=== PATIENT | male | born 1975 | race Caucasian/White ===

== ENCOUNTER 2020-02-22 12:40 | Inpatient (IN) | payer OTHER ==
--- NOTE | 2020-02-22 12:57 | BHS.RME ---
Substance Use & Tx History - Substance Use History Alcohol Substance amount: one pint whisky, Frequency of use: More than 3 times per week Substance route: Oral Date of Last Use: 02/19/20 Heroin Substance amount: 4-6 bags Frequency of use: Daily Substance route: Inhalation (ex: sniffing or snorting) Date of Last Use: 02/19/20 Xanax Substance amount: 1 mg x 3 tabs prescription Frequency of use: Daily Substance route: Oral Date of Last Use: 02/21/20 Synthetic Cannabinoid Substance amount: one or 2 blunts Frequency of use: Daily Substance route: Smoking Date of Last Use: 02/22/20 Physical/Psych/Mental Status - Behavior General Behavior: Increased activity (restlessness, agitation) Eye Contact: Normal - Cooperativeness Cooperativeness: Cooperative - Thinking Thought Processes: Tight Thought content: Future oriented - Physical Health Problems Is patient presently having any pain?: Yes (face, fell yesterday, back pain) Does patient presently have any injuries (include location): Yes (fell yesterday) Does patient currently have a fever: No CIWA Nausea/Vomitin-No Nausea/No Vomiting Muscle Tremors: 4-Moderate,w/Arms Extend Anxiety: 4-Mod. Anxious/Guarded Agitation: 3 Paroxysmal Sweats: No Perspiration Orientation: 1-Uncertain about Date Tacttile Disturbances: 0-None Auditory Disturbances: 0-None Visual Disturbances: 0-None Headache: 1-Very Mild CIWA-Ar Total Score: 13
[2020-02-22 13:49] VITALS: BMI 28.6
--- NOTE | 2020-02-22 14:13 | HP ---
"CIWA Score Nausea/Vomitin-No Nausea/No Vomiting Muscle Tremors: 4-Moderate,w/Arms Extend Anxiety: 4-Mod. Anxious/Guarded Agitation: 3 Paroxysmal Sweats: No Perspiration Orientation: 1-Uncertain about Date Tacttile Disturbances: 0-None Auditory Disturbances: 0-None Visual Disturbances: 0-None Headache: 1-Very Mild CIWA-Ar Total Score: 13 - Admission Criteria OASAS Guidelines: Admission for Medically Managed Detox: Requires at least one of the followin. CIWA greater than 12 2. Seizures within the past 24 hours 3. Delirium tremens within the past 24 hours 4. Hallucinations within the past 24 hours 5. Acute intervention needed for co occurring medical disorder 6. Acute intervention needed for co occurring psychiatric disorder 7. Severe withdrawal that cannot be handled at a lower level of care (continued vomiting, continued diarrhea, abnormal vital signs) requiring intravenous medication and/or fluids 8. Admitting History and Physical - Admission Chief Complaint: Mr. Hair is a 44 yo man who presents to [facility] requesting detox from alcohol. History of Present Illness: Mr. Hair is a 44 yo man who presents to [facility] requesting detox from alcohol. He is using multiple substances. He is on a methadone program. This is his first visit to [facility]. PMH: Hep C untreated PSH: Scrotum 4 mos ago, spleen surgery, right jaw fracture Psych: Bipolar, Schizophrenia, Panic, does not recall names of meds SOC: usp Legal: none Substance Use History Alcohol Substance amount: one pint whisky, Frequency of use: More than 3 times per week Substance route: Oral Date of Last Use: 02/19/20 Heroin Substance amount: 4-6 bags Frequency of use: Daily Substance route: Inhalation (ex: sniffing or snorting) Date of Last Use: 02/19/20 Xanax Substance amount: 1 mg x 3 tabs prescription Frequency of use: Daily Substance route: Oral Date of Last Use: 02/21/20 Synthetic Cannabinoid Substance amount: one or 2 blunts Frequency of use: Daily Substance route: Smoking Date of Last Use: 02/22/20 states he blacked out yesterday after heavy use Cannabis: 2 joints twice per week, last use ? 2 weeks ago, began use age 19 y [facility] escobar hair, 1975 Search Date: 02/22/2020 14:11:30 PM The Drug Utilization Report below displays all of the controlled substance prescriptions, if any, that your patient has filled in the last twelve months. The information displayed on this report is compiled from pharmacy submissions to the Department, and accurately reflects the information as submitted by the pharmacies. This report was requested by: Emma Diaz | Reference #: [id number] Others' Prescriptions Patient Name: Escobar Hair Date: 1975 Address: [address] [place] [address] Sex: Male Rx Written Rx Dispensed Drug Quantity Days Supply Prescriber Name 08/07/2019 08/08/2019 alprazolam 1 mg tablet 21 7 Mariely Diaz Date: 1975 Address: [address] [place] [address] Sex: Male Rx Written Rx Dispensed Drug Quantity Days Supply Prescriber Name 12/22/2019 12/25/2019 zolpidem tartrate 10 mg tablet 30 30 Moriah Terrell MD 12/22/2019 12/25/2019 alprazolam 1 mg tablet 90 30 Moriah Terrell MD Date: 1975 Address: [address] [place] [id number] Sex: Male Rx Written Rx Dispensed Drug Quantity Days Supply Prescriber Name 02/13/2020 02/15/2020 alprazolam 1 mg tablet 90 30 Giuliana Kathleen NP 01/17/2020 01/17/2020 zolpidem tartrate 10 mg tablet 30 30 Hamlet Vargas MD 01/17/2020 01/17/2020 alprazolam 1 mg tablet 90 30 Hamlet Vargas MD 11/20/2019 11/20/2019 zolpidem tartrate 10 mg tablet 30 30 Hamlet Vargas MD 11/20/2019 11/20/2019 alprazolam 1 mg tablet 90 30 Hamlet Vargas MD 08/14/2019 09/13/2019 zolpidem tartrate 10 mg tablet 30 30 Hamlet Vargas MD 08/14/2019 08/14/2019 clonazepam 1 mg tablet 90 30 Hamlet Vargas MD Lengthy discussion with pt., in [place] with RN and Mr. Kee Camargo about rx for alprazolam. Pt asking to continue alprazolam while here. Offered Librium detox and explained taper plan. He is in agreement with Librium taper. Have suggested he taper benzodiazepines as an outpatient, discuss with [employer] Frannie or Dr. Vargas. History Source: Patient Limitations to Obtaining History: No Limitations Admission ROS BHS - HPI Allergies/Adverse Reactions: Allergies Allergy/AdvReac Type Severity Reaction Status Date / Time No Known Allergies Allergy Verified 02/22/20 13:32 Exam Limitations: No Limitations - Ebola screening Have you traveled outside of the country in the last 21 days: No Have you been sick,other than usual withdrawal symptoms: No Do you have a fever: No - Review of Systems Constitutional: Changes in sleep (insomnia), Unintentional Wgt. Loss (lost 10 to 15 lbs over the past one month) EENT: reports: Hearing Loss (muffled hearing right ear for 8 mos) Respiratory: reports: No Symptoms reported Cardiac: reports: No Symptoms Reported GI: reports: No Symptoms Reported : reports: No Symptoms Reported Musculoskeletal: reports: Other (aches all over, fell yesterday) Integumentary: reports: Other (multiple abrasions right side of forehead, lateral right temporal, bilateral proximal interphalangeal joints, knees left >right) Neuro: reports: Headache Endocrine: reports: No Symptoms Reported Hematology: reports: No Symptoms Reported Psychiatric: reports: Anxious Patient History - Smoking Cessation Smoking history: Current every day smoker Have you smoked in the past 12 months: Yes Aproximately how many cigarettes per day: 10 Hx Chewing Tobacco Use: No Initiated information on smoking cessation: Yes 'Breaking Loose' booklet given: 02/22/20 Admission Physical Exam [facility] - Vital Signs Vital Signs: Vital Signs - 24 hr 02/22/20 13:46 Temperature 98 F Pulse Rate 77 Respiratory 20 Rate Blood Pressure 109/72 - Physical General Appearance: Yes: No Apparent Distress, Nourished, Appropriately Dressed, Anxious HEENTM: Yes: EOMI, Hearing grossly Normal, Normocephalic, Normal Voice Respiratory: Yes: Lungs Clear, No Respiratory Distress, No Accessory Muscle Use Neck: Yes: Within Normal Limits, Supple Breast: Yes: Breast Exam Deferred Cardiology: Yes: Regular Rhythm, Regular Rate Abdominal: Yes: Normal Bowel Sounds, Non Tender, Flat, Soft Genitourinary: Yes: Other (deferred) Back: Yes: Normal Inspection Musculoskeletal: Yes: Gait Steady Neurological: Yes: Alert, Normal Response Integumentary: Yes: Other (multiple superficial abrasions right side of forehead, right lateral upper brow, lateral orbit, bilateral proximal interphalangeal joints, knees) - Diagnostic (1) Alcohol dependence with withdrawal, uncomplicated Current Visit: Yes Status: Acute Comment: 1. Admit detox 2. Librium 3. Pt agrees he will not get alprazolam while here 4. Routine labs in am (2) Methadone maintenance therapy patient Current Visit: Yes Status: Acute Comment: 1. dose verified, will continue 50 mg daily (3) Hepatitis C Current Visit: No Status: Chronic (4) Cannabis dependence Current Visit: Yes Status: Acute Comment: 1. Substance use education (5) Bipolar 1 disorder Current Visit: Yes Status: Acute Comment: 1. Psychiatry consultation Cleared for Admission S - Detox or Rehab [facility] Level of Care: Medically Managed Detox Regimen/Protocol: Librium Breathalyzer - Breathalyzer Breathalyzer: 0 Urine Drug Screen - Test Device Lot number: [id number] Expiration date: 09/05/21 - Control Is test valid?: Yes - Results Drug screen NEGATIVE: No Urine drug screen results: THC-Marijuana, MTD-Methadone, BZO-Benzodiazepines Inpatient Rehab Admission - Rehab Decision to Admit Inpatient rehab admission?: No"
[2020-02-22] MEDS ORDERED: NICOTINE POLACRILEX 2 MG GUM BUC PRN (14:21)
[2020-02-22] MEDS ORDERED: BISMUTH SUBSALICYLATE 262 MG/15 ML BTL PO PRN (14:21)
[2020-02-22] MEDS ORDERED: IBUPROFEN 400 MG TABLET (FP) PO PRN (14:21)
[2020-02-22] MEDS ORDERED: MAGNESIUM HYDROX 2400MG/30ML ORAL SUSPENSION 30 ML CUP PO PRN (14:21)
[2020-02-22] MEDS ORDERED: MAG HYDROX/AL HYDROX/SIMETH 30 ML UNIT-DOSE CUP PO PRN (14:21)
[2020-02-22] MEDS ORDERED: ONDANSETRON *ODT* 4 MG TABLET SL PRN (14:21)
[2020-02-22] MEDS ORDERED: MENTHOL/PHENOL 1 EACH UD MM PRN (14:21)
[2020-02-22] MEDS ORDERED: chlordiazePOXIDE HCL 25 MG CAPSULE PO PRN (14:21)
[2020-02-22] MEDS ORDERED: ACETAMINOPHEN 325 MG TABLET (FP) PO PRN ×2 (14:21)
[2020-02-22] MEDS ORDERED: MAGNESIUM CITRATE 300 ML BOTTLE PO PRN (14:21)
[2020-02-22] MEDS ORDERED: METHADONE HCL 40 MG DISPERSABLE TABLET PO SCH (14:30)
[2020-02-22] MEDS ORDERED: METHADONE 40 MG, METHADONE 10 MG PO SCH (14:30)
[2020-02-22] MEDS ORDERED: METHADONE HCL 40 MG DISPERSABLE TABLET ONE (15:26)
[2020-02-22] MEDS ORDERED: METHADONE HCL 10 MG TABLET ONE (15:26)
--- NOTE | 2020-02-22 16:10 | EKG ---
Test Reason : Blood Pressure : / mmHG Vent. Rate : 066 BPM Atrial Rate : 066 BPM P-R Int : 166 ms QRS Dur : 086 ms QT Int : 414 ms P-R-T Axes : 043 072 062 degrees QTc Int : 434 ms NORMAL SINUS RHYTHM WITH SINUS ARRHYTHMIA NORMAL ECG NO PREVIOUS ECGS AVAILABLE Confirmed by SENG ALMONTE MD ([id number]) on 02/22/2020 4:10:40 PM Referred By: Confirmed By:SENG ALMONTE MD
[2020-02-22] MEDS ORDERED: hydrOXYzine PAMOATE 25 MG CAPSULE (FP) PO SCH (18:00)
[2020-02-22] MEDS: chlordiazePOXIDE HCL 25 MG CAPSULE PO SCH ×2 (18:29→23:55)
[2020-02-22] MEDS: MUPIROCIN 2% TOPICAL OINTMENT 22 GM TUBE TP SCH (23:54)
[2020-02-22] MEDS: THIAMINE HCL 100 MG TABLET (FP) PO SCH (23:54)
[2020-02-22] MEDS: MELATONIN 5 MG TABLETS PO SCH (23:54)
[2020-02-23] MEDS: chlordiazePOXIDE HCL 25 MG CAPSULE PO SCH ×4 (05:16→22:45)
[2020-02-23] MEDS ORDERED: METHADONE HCL 10 MG TABLET PO ONE (08:40)
[2020-02-23] MEDS ORDERED: METHADONE HCL 10 MG TABLET ONE (08:50)
[2020-02-23] MEDS ORDERED: METHADONE HCL 40 MG DISPERSABLE TABLET ONE (08:51)
[2020-02-23] MEDS ORDERED: METHADONE 40 MG, METHADONE 10 MG PO ONE (09:00)
--- NOTE | 2020-02-23 09:48 | CONSULT ---
[facility] Psychiatric Consult - Data Date of interview: 02/23/20 Admission source: Self-referred Identifying data: Mr Hair is a 44 years old single male, father of a 26 years old daughter, unemployed with no source of income, homeless seeking detox treatment for alcohol, opioid and synthetic cannabis Substance Abuse History: Reports history of alcohol, heroin and k2 use. Refer to addiction counselor's summary for further information Medical History: Significant for hepatitis C and multiple surgeries(scrotum, spleen, fracture right mandible). Patient is on methadone 50 mg/day from [facility]. Smokes 10 cigarettes daily Psychiatric History: This is patient's first admission to this facility. He reports that he was diagnosed with Bipolar Schizophrenia approximately 9 years a go. Reports multiple previous psychiatric hospitalizations at various institutions including [facility], [facility], [facility]. Reports receiving outpatient psychiatric treatment at [facility] and he is prescribed Xanax 1mg/tid and other medications. Denies previous suicidal attempt. At present, denies experiencing psychotic, manic symptoms, S/H ideations. However, he is kamar irritable, reports feeling very depressed and sleeping poorly Physical/Sexual Abuse/Trauma History: Not addressed due to patient's irritability Mental Status Exam - Mental Status Exam Alert and Oriented to: Time (Mar 24, 2020), Place, Person Cognitive Function: Fair Patient Appearance: Disheveled Mood: Depressed, Irritable Affect: Appropriate Speech Pattern: Clear Voice Loudness: Normal Thought Process: Intact, Goal Oriented Hallucinations: Denies Suicidal Ideation: Denies Homicidal Ideation: Denies Insight/Judgement: Poor Sleep: Poorly Appetite: Good Muscle strength/Tone: Normal Gait/Station: Normal Psychiatric Findings - Problem List ([place] 1, 2,3) (1) Schizoaffective disorder Status: Chronic (2) Bipolar 1 disorder Status: Ruled-out Comment: 1. Psychiatry consultation (3) Substance induced mood disorder Status: Chronic (4) Substance-induced sleep disorder Status: Acute (5) Alcohol dependence with withdrawal, uncomplicated Status: Chronic Comment: 1. Admit detox 2. Librium 3. Pt agrees he will not get alprazolam while here 4. Routine labs in am (6) Cannabis dependence Status: Chronic Comment: 1. Substance use education (7) Opioid dependence on agonist therapy Status: Chronic (8) Nicotine dependence Status: Chronic (9) Hepatitis C Status: Chronic - Initial Treatment Plan Initial Treatment Plan: Continue inpatient detoxification
[2020-02-23] MEDS: METHOCARBAMOL 500 MG TABLET PO PRN (10:09)
[2020-02-23] MEDS: NICOTINE 7 MG/24 HOURS TOPICAL PATCH TD SCH (10:09)
[2020-02-23] MEDS: PRENATAL VITAMINS W/ FOLIC ACID TABLET (FP) PO SCH (10:09)
[2020-02-23] MEDS: hydrOXYzine PAMOATE 25 MG CAPSULE (FP) PO PRN ×2 (10:09→17:05)
[2020-02-23] MEDS: MUPIROCIN 2% TOPICAL OINTMENT 22 GM TUBE TP SCH ×2 (10:12→23:59)
[2020-02-23 10:16] LABS: HEMATOCRIT 40.1 % (35.4-49); MCH 29.5 pg (25.7-33.7); MCHC 32.4 g/dl (32.0-35.9); MEAN PLT VOLUME 9.7 fl (7.5-11.1); PLATELET COUNT 221 K/MM3 (134-434); RBC 4.41 M/mm3 (4.00-5.60); RDW 13.5 % (11.9-15.9); WHITE BLOOD COUNT 6.1 K/mm3 (4.0-10.0)
[2020-02-23 10:18] LABS: ALBUMIN 2.9 g/dl (3.4-5.0); BILIRUBIN,TOTAL 0.2 mg/dL (0.2-1); BLOOD UREA NITROGEN 6.9 mg/dL (7-18); CALCIUM 8.7 mg/dL (8.5-10.1); CREATININE 0.5 mg/dL (0.55-1.3); TOT PROT 6.4 g/dl (6.4-8.2)
--- NOTE | 2020-02-23 12:55 | PN ---
S CIWA - CIWA Score Nausea/Vomitin-No Nausea/No Vomiting Muscle Tremors: 3 Anxiety: 2 Agitation: 3 Paroxysmal Sweats: 3 Orientation: 0-Oriented Tacttile Disturbances: 0-None Auditory Disturbances: 0-None Visual Disturbances: 0-None Headache: 0-None Present CIWA-Ar Total Score: 11 S Progress Note (SOAP) Subjective: sweats shakes interrupted sleep agitation restless anxiety body aches Objective: 02/23/20 12:56 Vital Signs Temperature 97.3 F L 02/23/20 08:29 Pulse Rate 53 L 02/23/20 08:29 Respiratory Rate 16 02/23/20 08:29 Blood Pressure 117/75 02/23/20 08:29 O2 Sat by Pulse Oximetry (%) 99 02/23/20 08:29 Laboratory Tests 02/23/20 02/23/20 02/23/20 08:00 08:00 08:00 WBC 6.1 RBC 4.41 Hgb 13.0 Hct 40.1 MCV 91.0 MCH 29.5 MCHC 32.4 RDW 13.5 Plt Count 221 MPV 9.7 Sodium 142 Potassium 4.0 Chloride 107 Carbon Dioxide 30 Anion Gap 5 L BUN 6.9 L Creatinine 0.5 L Est GFR (CKD-EPI)AfAm 153.83 Est GFR (CKD-EPI)NonAf 132.72 Random Glucose 91 Calcium 8.7 Total Bilirubin 0.2 AST 31 ALT 59 Alkaline Phosphatase 68 Total Protein 6.4 Albumin 2.9 L Syphilis Serology Non-reactive labs noted aaox3 ambulating no acute distress Assessment: 02/23/20 12:56 withdrawals Plan: continue detox increase fluids
[2020-02-23] MEDS: THIAMINE HCL 100 MG TABLET (FP) PO SCH (22:46)
[2020-02-23] MEDS: MELATONIN 5 MG TABLETS PO SCH (22:46)
[2020-02-24] MEDS ORDERED: METHADONE HCL 10 MG TABLET ONE (04:46)
[2020-02-24] MEDS ORDERED: METHADONE HCL 40 MG DISPERSABLE TABLET ONE (04:47)
[2020-02-24] MEDS: chlordiazePOXIDE HCL 25 MG CAPSULE PO SCH ×4 (06:19→22:34)
[2020-02-24] MEDS: METHADONE 40 MG, METHADONE 10 MG PO SCH (06:20)
[2020-02-24] MEDS: MUPIROCIN 2% TOPICAL OINTMENT 22 GM TUBE TP SCH ×2 (10:16→22:34)
[2020-02-24] MEDS: NICOTINE 7 MG/24 HOURS TOPICAL PATCH TD SCH (10:16)
[2020-02-24] MEDS: METHOCARBAMOL 500 MG TABLET PO PRN (10:17)
[2020-02-24] MEDS: hydrOXYzine PAMOATE 25 MG CAPSULE (FP) PO PRN (10:17)
[2020-02-24] MEDS: PRENATAL VITAMINS W/ FOLIC ACID TABLET (FP) PO SCH (10:17)
--- NOTE | 2020-02-24 16:51 | PN ---
S CIWA - CIWA Score Nausea/Vomitin-No Nausea/No Vomiting Muscle Tremors: 3 Anxiety: 2 Agitation: 1-Slight > Activity Paroxysmal Sweats: 3 Orientation: 0-Oriented Tacttile Disturbances: 0-None Auditory Disturbances: 0-None Visual Disturbances: 0-None Headache: 0-None Present CIWA-Ar Total Score: 9 BHS Progress Note (SOAP) Subjective: Tremors, Sweating, Anxious, Fatigue. Objective: Patient A & O X 3, Observed Ambulating on Detox Unit Unassisted. In No Acute Distress. 02/24/20 16:52 Vital Signs Temperature 97.1 F L 02/24/20 12:36 Pulse Rate 60 02/24/20 12:36 Respiratory Rate 18 02/24/20 12:36 Blood Pressure 112/59 L 02/24/20 12:36 O2 Sat by Pulse Oximetry (%) 100 02/24/20 12:36 Laboratory Tests 02/22/20 02/23/20 02/23/20 16:00 08:00 08:00 WBC 6.1 RBC 4.41 Hgb 13.0 Hct 40.1 MCV 91.0 MCH 29.5 MCHC 32.4 RDW 13.5 Plt Count 221 MPV 9.7 Sodium Potassium Chloride Carbon Dioxide Anion Gap BUN Creatinine Est GFR (CKD-EPI)AfAm Est GFR (CKD-EPI)NonAf Random Glucose Calcium Total Bilirubin AST ALT Alkaline Phosphatase Total Protein Albumin Syphilis Serology Non-reactive COVID-19 (WILLIAM) Not detected 02/23/20 08:00 WBC RBC Hgb Hct MCV MCH MCHC RDW Plt Count MPV Sodium 142 Potassium 4.0 Chloride 107 Carbon Dioxide 30 Anion Gap 5 L BUN 6.9 L Creatinine 0.5 L Est GFR (CKD-EPI)AfAm 153.83 Est GFR (CKD-EPI)NonAf 132.72 Random Glucose 91 Calcium 8.7 Total Bilirubin 0.2 AST 31 ALT 59 Alkaline Phosphatase 68 Total Protein 6.4 Albumin 2.9 L Syphilis Serology COVID-19 (WILLIAM) Lab Results noted. Assessment: 02/24/20 16:53 WITHDRAWAL SYMPTOMS. Plan: Continue Detox.
[2020-02-24] MEDS: MELATONIN 5 MG TABLETS PO SCH (22:34)
[2020-02-24] MEDS: THIAMINE HCL 100 MG TABLET (FP) PO SCH (22:34)
[2020-02-25] MEDS ORDERED: chlordiazePOXIDE HCL 10 MG CAPSULE PO PRN
[2020-02-25] MEDS ORDERED: METHADONE HCL 40 MG DISPERSABLE TABLET ONE (04:57)
[2020-02-25] MEDS ORDERED: METHADONE HCL 10 MG TABLET ONE (04:57)
[2020-02-25] MEDS: chlordiazePOXIDE HCL 10 MG CAPSULE PO SCH ×4 (06:11→22:04)
[2020-02-25] MEDS: METHADONE 40 MG, METHADONE 10 MG PO SCH (06:12)
[2020-02-25] MEDS: MUPIROCIN 2% TOPICAL OINTMENT 22 GM TUBE TP SCH ×2 (10:35→22:59)
[2020-02-25] MEDS: hydrOXYzine PAMOATE 25 MG CAPSULE (FP) PO PRN (10:35)
[2020-02-25] MEDS: METHOCARBAMOL 500 MG TABLET PO PRN (10:35)
[2020-02-25] MEDS: NICOTINE 7 MG/24 HOURS TOPICAL PATCH TD SCH (10:36)
[2020-02-25] MEDS: PRENATAL VITAMINS W/ FOLIC ACID TABLET (FP) PO SCH (10:36)
--- NOTE | 2020-02-25 12:05 | PN ---
[facility] CIWA - CIWA Score Nausea/Vomitin-No Nausea/No Vomiting Muscle Tremors: 2 Anxiety: 2 Agitation: 1-Slight > Activity Paroxysmal Sweats: 2 Orientation: 0-Oriented Tacttile Disturbances: 0-None Auditory Disturbances: 0-None Visual Disturbances: 0-None Headache: 0-None Present CIWA-Ar Total Score: 7 BHS Progress Note (SOAP) Subjective: Complaints of tremors, sweats, and anxiety. Objective: 02/25/20 12:03 Vital Signs 02/25/20 02/25/20 07:32 08:19 Temperature 97.7 F 98.1 F Pulse Rate 53 L 64 Respiratory 16 18 Rate Blood Pressure 106/68 105/62 O2 Sat by Pulse 96 Oximetry (%) Laboratory Last Values WBC 6.1 K/mm3 (4.0-10.0) 02/23/20 08:00 RBC 4.41 M/mm3 (4.00-5.60) 02/23/20 08:00 Hgb 13.0 GM/dL (11.7-16.9) 02/23/20 08:00 Hct 40.1 % (35.4-49) 02/23/20 08:00 MCV 91.0 fl (80-96) 02/23/20 08:00 MCH 29.5 pg (25.7-33.7) 02/23/20 08:00 MCHC 32.4 g/dl (32.0-35.9) 02/23/20 08:00 RDW 13.5 % (11.9-15.9) 02/23/20 08:00 Plt Count 221 K/MM3 (134-434) 02/23/20 08:00 MPV 9.7 fl (7.5-11.1) 02/23/20 08:00 Sodium 142 mmol/L (136-145) 02/23/20 08:00 Potassium 4.0 mmol/L (3.5-5.1) 02/23/20 08:00 Chloride 107 mmol/L (98-107) 02/23/20 08:00 Carbon Dioxide 30 mmol/L (21-32) 02/23/20 08:00 Anion Gap 5 MMOL/L (8-16) L 02/23/20 08:00 BUN 6.9 mg/dL (7-18) L 02/23/20 08:00 Creatinine 0.5 mg/dL (0.55-1.3) L 02/23/20 08:00 Est GFR (CKD-EPI)AfAm 153.83 02/23/20 08:00 Est GFR (CKD-EPI)NonAf 132.72 02/23/20 08:00 Random Glucose 91 mg/dL (74-106) 02/23/20 08:00 Calcium 8.7 mg/dL (8.5-10.1) 02/23/20 08:00 Total Bilirubin 0.2 mg/dL (0.2-1) 02/23/20 08:00 AST 31 U/L (15-37) 02/23/20 08:00 ALT 59 U/L (13-61) 02/23/20 08:00 Alkaline Phosphatase 68 U/L (45-117) 02/23/20 08:00 Total Protein 6.4 g/dl (6.4-8.2) 02/23/20 08:00 Albumin 2.9 g/dl (3.4-5.0) L 02/23/20 08:00 Syphilis Serology Non-reactive (NONREACTIVE) 02/23/20 08:00 COVID-19 (WILLIAM) Not detected (Not Detected) 02/22/20 16:00 Labs noted. Assessment: 02/25/20 12:03 Alert and oriented x3, in no acute respiratory distress. Full ROM, ambulatory in the unit without assistance. Skin warm to touch. Withdrawal symptoms. Plan: Continue detox protocol.
[2020-02-25] MEDS: THIAMINE HCL 100 MG TABLET (FP) PO SCH (22:04)
[2020-02-25] MEDS: MELATONIN 5 MG TABLETS PO SCH (22:59)
[2020-02-26] MEDS ORDERED: METHADONE HCL 10 MG TABLET ONE (04:26)
[2020-02-26] MEDS ORDERED: METHADONE HCL 40 MG DISPERSABLE TABLET ONE (04:26)
[2020-02-26] MEDS: chlordiazePOXIDE HCL 10 MG CAPSULE PO SCH ×2 (06:26→17:38)
[2020-02-26] MEDS: METHADONE 40 MG, METHADONE 10 MG PO SCH (06:26)
[2020-02-26] MEDS: NICOTINE 7 MG/24 HOURS TOPICAL PATCH TD SCH (10:40)
[2020-02-26] MEDS: PRENATAL VITAMINS W/ FOLIC ACID TABLET (FP) PO SCH (10:40)
[2020-02-26] MEDS: MUPIROCIN 2% TOPICAL OINTMENT 22 GM TUBE TP SCH ×2 (10:43→22:26)
--- NOTE | 2020-02-26 12:06 | PN ---
S CIWA - CIWA Score Nausea/Vomitin-No Nausea/No Vomiting Muscle Tremors: 1-None Visible, but [place] Anxiety: 1-Mildly Anxious Agitation: 1-Slight > Activity Paroxysmal Sweats: No Perspiration Orientation: 0-Oriented Tacttile Disturbances: 0-None Auditory Disturbances: 0-None Visual Disturbances: 0-None Headache: 0-None Present CIWA-Ar Total Score: 3 BHS Progress Note (SOAP) Subjective: little anxiety Objective: 02/26/20 12:06 Vital Signs Temperature 98.2 F 02/26/20 05:47 Pulse Rate 54 L 02/26/20 05:47 Respiratory Rate 16 02/26/20 05:47 Blood Pressure 100/52 L 02/26/20 05:47 O2 Sat by Pulse Oximetry (%) 97 02/26/20 05:47 aaox3 ambulating no acute distress Assessment: 02/26/20 12:06 withdrawals Plan: d/c in am
[2020-02-26] MEDS: MELATONIN 5 MG TABLETS PO SCH (22:25)
[2020-02-26] MEDS: THIAMINE HCL 100 MG TABLET (FP) PO SCH (22:25)
[2020-02-26] MEDS: METHOCARBAMOL 500 MG TABLET PO PRN (22:25)
[2020-02-26] MEDS: hydrOXYzine PAMOATE 25 MG CAPSULE (FP) PO PRN (22:25)
[2020-02-27] MEDS ORDERED: METHADONE HCL 40 MG DISPERSABLE TABLET ONE (04:18)
[2020-02-27] MEDS ORDERED: METHADONE HCL 10 MG TABLET ONE (04:18)
[2020-02-27] MEDS ORDERED: chlordiazePOXIDE HCL 10 MG CAPSULE PO ONE (05:00)
[2020-02-27] MEDS: METHADONE 40 MG, METHADONE 10 MG PO SCH (05:12)
--- NOTE | 2020-02-27 09:03 | DS ---
[facility] Detox Discharge Summary Admission Date: 02/22/20 Discharge Date: 02/27/20 - History Present History: Alcohol Dependence, Cocaine Dependence, Opioid Dependence - Physical Exam Results Vital Signs: Vital Signs Temperature 98.0 F 02/27/20 05:05 Pulse Rate 66 02/27/20 05:05 Respiratory Rate 18 02/27/20 05:05 Blood Pressure 97/58 L 02/27/20 05:05 O2 Sat by Pulse Oximetry (%) 95 02/27/20 05:05 Pertinent Admission Physical Exam Findings: Vital Signs Temperature 98.0 F 02/27/20 05:05 Pulse Rate 66 02/27/20 05:05 Respiratory Rate 18 02/27/20 05:05 Blood Pressure 97/58 L 02/27/20 05:05 O2 Sat by Pulse Oximetry (%) 95 02/27/20 05:05 Laboratory Tests 02/22/20 02/23/20 02/23/20 16:00 08:00 08:00 WBC 6.1 RBC 4.41 Hgb 13.0 Hct 40.1 MCV 91.0 MCH 29.5 MCHC 32.4 RDW 13.5 Plt Count 221 MPV 9.7 Sodium Potassium Chloride Carbon Dioxide Anion Gap BUN Creatinine Est GFR (CKD-EPI)AfAm Est GFR (CKD-EPI)NonAf Random Glucose Calcium Total Bilirubin AST ALT Alkaline Phosphatase Total Protein Albumin Syphilis Serology Non-reactive COVID-19 (WILLIAM) Not detected 02/23/20 08:00 WBC RBC Hgb Hct MCV MCH MCHC RDW Plt Count MPV Sodium 142 Potassium 4.0 Chloride 107 Carbon Dioxide 30 Anion Gap 5 L BUN 6.9 L Creatinine 0.5 L Est GFR (CKD-EPI)AfAm 153.83 Est GFR (CKD-EPI)NonAf 132.72 Random Glucose 91 Calcium 8.7 Total Bilirubin 0.2 AST 31 ALT 59 Alkaline Phosphatase 68 Total Protein 6.4 Albumin 2.9 L Syphilis Serology COVID-19 (WILLIAM) aaox3 ambulating no acute distress lungs CTA - Treatment Hospital Course: Detox Protocol Followed, Detoxed Safely, Responded well, Discharged Condition Good, Rehab Referral Accepted - Medication Discharge Medications: Ambulatory Orders Alprazolam 1 mg PO TID 02/22/20 Methadone [Dolophine -] 50 mg PO DAILY 02/22/20 - Diagnosis (1) Alcohol dependence with withdrawal, uncomplicated Current Visit: Yes Status: Chronic (2) Cannabis dependence Current Visit: Yes Status: Chronic (3) Methadone maintenance therapy patient Current Visit: Yes Status: Chronic (4) Substance induced mood disorder Current Visit: Yes Status: Chronic (5) Substance-induced sleep disorder Current Visit: Yes Status: Acute (6) Hepatitis C Current Visit: Yes Status: Chronic (7) Nicotine dependence Current Visit: Yes Status: Chronic (8) Opioid dependence on agonist therapy Current Visit: Yes Status: Chronic (9) Schizoaffective disorder Current Visit: Yes Status: Chronic (10) Bipolar 1 disorder Current Visit: Yes Status: Ruled-out (11) Hepatitis C Current Visit: No Status: Chronic - AMA Did Patient Leave Against Medical Advice: No
[2020-02-27] MEDS: MUPIROCIN 2% TOPICAL OINTMENT 22 GM TUBE TP SCH (11:12)
[2020-02-27] MEDS: NICOTINE 7 MG/24 HOURS TOPICAL PATCH TD SCH (11:13)
[2020-02-27] MEDS: PRENATAL VITAMINS W/ FOLIC ACID TABLET (FP) PO SCH (11:13)
[2020-02-27 14:19] VITALS: BP 109/60; PULSE 73; TEMP 97.8
== END 2020-02-27 14:38 | disposition other institution (70) | DRG 773 ==
LOC: YASAS 12:40 → Y6N 14:18
PROVIDERS: ADMIT Allergy & Immunology; ATTEND Allergy & Immunology
PROC: HZ2ZZZZ Detoxification Services for Substance Abuse Treatment (ICD-10-PCS; principal; 2020-02-22)
DX: F10.230 Alcohol dependence with withdrawal, uncomplicated (principal); F11.20 Opioid dependence, uncomplicated; F13.20 Sedative, hypnotic or anxiolytic dependence, uncomplicated; F14.20 Cocaine dependence, uncomplicated; F19.20 Other psychoactive substance dependence, uncomplicated; F12.20 Cannabis dependence, uncomplicated; F17.210 Nicotine dependence, cigarettes, uncomplicated; F25.9 Schizoaffective disorder, unspecified; F19.24 Other psychoactive substance dependence with psychoactive substance-induced mood disorder; F19.282 Other psychoactive substance dependence with psychoactive substance-induced sleep disorder; B18.2 Chronic viral hepatitis C; H91.91 Unspecified hearing loss, right ear; Z56.0 Unemployment, unspecified; Z59.0 Homelessness
CPT/HCPCS: 36415; 80053; 85027; 86780; 93005; 93010; U0003

== ENCOUNTER 2020-02-27 14:55 | Inpatient (IN) | payer OTHER ==
[2020-02-27 16:09] VITALS: BMI 28.9
[2020-02-27] MEDS ORDERED: MAGNESIUM CITRATE 300 ML BOTTLE PO PRN (16:25)
[2020-02-27] MEDS ORDERED: MAGNESIUM HYDROX 2400MG/30ML ORAL SUSPENSION 30 ML CUP PO PRN (16:25)
[2020-02-27] MEDS ORDERED: MENTHOL/PHENOL 1 EACH UD MM PRN (16:25)
[2020-02-27] MEDS ORDERED: MAG HYDROX/AL HYDROX/SIMETH 30 ML UNIT-DOSE CUP PO PRN (16:25)
[2020-02-27] MEDS ORDERED: NICOTINE POLACRILEX 2 MG GUM BUC PRN (16:25)
[2020-02-27] MEDS ORDERED: guaiFENesin 200 MG/10 ML 10 ML UNIT-DOSE CUPS PO PRN (16:25)
[2020-02-27] MEDS ORDERED: P-EPHED 60MG/TRIPROLIDI 2.5MG TABLET PO PRN (16:25)
[2020-02-27] MEDS ORDERED: LOPERAMIDE HCL 2 MG CAPSULE PO PRN (16:25)
[2020-02-27] MEDS ORDERED: IBUPROFEN 400 MG TABLET (FP) PO PRN (16:25)
[2020-02-27] MEDS ORDERED: ACETAMINOPHEN 325 MG TABLET (FP) PO PRN (16:25)
--- NOTE | 2020-02-27 16:25 | HP ---
[facility] Rehab Assess/Revision - Admission History Admitted to Rehab from[facility] - Findings Detox History & Physical reviewed: Yes Concur with findings: Yes Inpatient Rehab Admission - Rehab Decision to Admit Inpatient rehab admission?: Yes - Initial Determination Are CD services needed?: Yes Free of communicable disease: Yes Not in need of hospitalization: Yes - Rehab Admission Criteria Previous failed treatment: Yes Poor recovery environment: Yes Comorbidities: Yes Lacks judgement: Yes Patient is meeting Inpatient Rehab admission criteria:: Yes
[2020-02-27] MEDS: hydrOXYzine PAMOATE 25 MG CAPSULE (FP) PO PRN (21:08)
[2020-02-27] MEDS: THIAMINE HCL 100 MG TABLET (FP) PO SCH (21:08)
[2020-02-27] MEDS: MELATONIN 5 MG TABLETS PO SCH (21:08)
[2020-02-28] MEDS ORDERED: METHADONE HCL 10 MG TABLET PO SCH ×2 (06:00)
[2020-02-28] MEDS ORDERED: METHADONE HCL 40 MG DISPERSABLE TABLET ONE (06:14)
[2020-02-28] MEDS: METHADONE 40 MG, METHADONE 10 MG PO SCH (06:14)
[2020-02-28] MEDS ORDERED: METHADONE HCL 10 MG TABLET ONE (06:14)
[2020-02-28] MEDS: PRENATAL VITAMINS W/ FOLIC ACID TABLET (FP) PO SCH (10:20)
[2020-02-28] MEDS: NICOTINE 7 MG/24 HOURS TOPICAL PATCH TD SCH (10:22)
[2020-02-28] MEDS: THIAMINE HCL 100 MG TABLET (FP) PO SCH (21:12)
[2020-02-28] MEDS: hydrOXYzine PAMOATE 25 MG CAPSULE (FP) PO PRN (21:12)
[2020-02-28] MEDS: MELATONIN 5 MG TABLETS PO SCH (21:13)
[2020-02-29] MEDS ORDERED: METHADONE HCL 10 MG TABLET ONE (03:20)
[2020-02-29] MEDS ORDERED: METHADONE HCL 40 MG DISPERSABLE TABLET ONE (03:21)
[2020-02-29] MEDS: METHADONE 40 MG, METHADONE 10 MG PO SCH (06:19)
[2020-02-29] MEDS: NICOTINE 7 MG/24 HOURS TOPICAL PATCH TD SCH (10:13)
[2020-02-29] MEDS: PRENATAL VITAMINS W/ FOLIC ACID TABLET (FP) PO SCH (10:13)
--- NOTE | 2020-02-29 10:26 | CONSULT ---
[facility] Psychiatric Consult - Data Date of interview: 02/29/20 Admission source: 6N Identifying data: Mr Hair is a 44 years old male, referred from detox on 02/26/30 for inpatient rehabilitation for alcohol, opioid and synthetic cannabis Substance Abuse History: Reports history of alcohol, heroin and k2 use. Refer to addiction counselor's summary for further information Medical History: Significant for hepatitis C and multiple surgeries(scrotum, spleen, fracture right mandible). Patient is on methadone 50 mg/day from [facility]. Smokes 10 cigarettes daily Psychiatric History: Patient was just referred on 02/27/20 from detox where he had his first admission to this facility. He reports that he was diagnosed with Bipolar Schizophrenia approximately 9 years ago. Reports multiple previous psychiatric hospitalizations at various institutions including [facility], [facility], [facility]. Reports receiving outpatient psychiatric treatment at [facility] with Dr Vargas and he is prescribed Xanax 1mg/tid, Lexapro and other medications. Denies previous suicidal attempt. At present, denies experiencing psychotic, manic symptoms, S/H ideations. However, he is very irritable, reports feeling very anxious and sleeping poorly. Patient insists on getting Alprazolam. He was told that he cannot that medication while and he became very upset accusing writr not helping him. He does wants to take Lexapro saying that:" I'm not depressed" Physical/Sexual Abuse/Trauma History: Not addressed due to patient's irri tability Mental Status Exam - Mental Status Exam Alert and Oriented to: Time, Place, Person Cognitive Function: Fair Patient Appearance: Disheveled Mood: Anxious Affect: Appropriate Patient Behavior: Cooperative Speech Pattern: Clear Voice Loudness: Normal Thought Process: Intact, Goal Oriented Hallucinations: Denies Suicidal Ideation: Denies Homicidal Ideation: Denies Insight/Judgement: Poor Sleep: Poorly Appetite: Good Muscle strength/Tone: Normal Gait/Station: Normal Psychiatric Findings - Problem List (Bland 1, 2,3) (1) Schizoaffective disorder Current Visit: No Status: Chronic (2) Bipolar 1 disorder Current Visit: No Status: Ruled-out Comment: 1. Psychiatry consultation (3) Substance induced mood disorder Current Visit: No Status: Acute (4) Substance-induced anxiety disorder Current Visit: Yes Status: Acute (5) Substance-induced sleep disorder Current Visit: Yes Status: Acute (6) Alcohol dependence Current Visit: Yes Status: Acute (7) Cannabis dependence Current Visit: No Status: Acute Comment: 1. Substance use education (8) Opioid dependence on agonist therapy Current Visit: No Status: Chronic (9) Nicotine dependence Current Visit: No Status: Chronic (10) Hepatitis C Current Visit: No Status: Chronic - Initial Treatment Plan Initial Treatment Plan: Continue inpatient rehabilitation
[2020-02-29] MEDS: MELATONIN 5 MG TABLETS PO SCH (21:09)
[2020-02-29] MEDS: hydrOXYzine PAMOATE 25 MG CAPSULE (FP) PO PRN (21:09)
[2020-02-29] MEDS: THIAMINE HCL 100 MG TABLET (FP) PO SCH (21:09)
[2020-03-01] MEDS ORDERED: METHADONE HCL 10 MG TABLET ONE (07:34)
[2020-03-01] MEDS ORDERED: METHADONE HCL 40 MG DISPERSABLE TABLET ONE (07:35)
[2020-03-01] MEDS: METHADONE 40 MG, METHADONE 10 MG PO SCH (07:39)
[2020-03-01] MEDS: PRENATAL VITAMINS W/ FOLIC ACID TABLET (FP) PO SCH (10:11)
[2020-03-01] MEDS: NICOTINE 7 MG/24 HOURS TOPICAL PATCH TD SCH (10:11)
[2020-03-01] MEDS: hydrOXYzine PAMOATE 25 MG CAPSULE (FP) PO PRN (21:06)
[2020-03-01] MEDS: MELATONIN 5 MG TABLETS PO SCH (21:06)
[2020-03-01] MEDS: THIAMINE HCL 100 MG TABLET (FP) PO SCH (21:06)
[2020-03-02] MEDS ORDERED: METHADONE HCL 40 MG DISPERSABLE TABLET ONE (04:00)
[2020-03-02] MEDS ORDERED: METHADONE HCL 10 MG TABLET ONE (04:00)
[2020-03-02] MEDS: METHADONE 40 MG, METHADONE 10 MG PO SCH (06:17)
[2020-03-02] MEDS: PRENATAL VITAMINS W/ FOLIC ACID TABLET (FP) PO SCH (09:46)
[2020-03-02] MEDS: NICOTINE 7 MG/24 HOURS TOPICAL PATCH TD SCH (09:46)
[2020-03-02] MEDS: MELATONIN 5 MG TABLETS PO SCH (21:50)
[2020-03-02] MEDS: THIAMINE HCL 100 MG TABLET (FP) PO SCH (21:50)
[2020-03-03] MEDS ORDERED: METHADONE HCL 10 MG TABLET ONE (04:00)
[2020-03-03] MEDS ORDERED: METHADONE HCL 40 MG DISPERSABLE TABLET ONE (04:00)
[2020-03-03] MEDS: METHADONE 40 MG, METHADONE 10 MG PO SCH (06:05)
[2020-03-03] MEDS: PRENATAL VITAMINS W/ FOLIC ACID TABLET (FP) PO SCH (09:34)
[2020-03-03] MEDS: NICOTINE 7 MG/24 HOURS TOPICAL PATCH TD SCH (09:34)
[2020-03-03] MEDS: hydrOXYzine PAMOATE 25 MG CAPSULE (FP) PO PRN ×2 (09:35→21:13)
[2020-03-03] MEDS: THIAMINE HCL 100 MG TABLET (FP) PO SCH (21:13)
[2020-03-03] MEDS: MELATONIN 5 MG TABLETS PO SCH (21:13)
[2020-03-04] MEDS ORDERED: METHADONE HCL 40 MG DISPERSABLE TABLET ONE (03:19)
[2020-03-04] MEDS ORDERED: METHADONE HCL 10 MG TABLET ONE (03:19)
[2020-03-04] MEDS: METHADONE 40 MG, METHADONE 10 MG PO SCH (06:08)
[2020-03-04] MEDS: NICOTINE 7 MG/24 HOURS TOPICAL PATCH TD SCH (10:06)
[2020-03-04] MEDS: PRENATAL VITAMINS W/ FOLIC ACID TABLET (FP) PO SCH (10:06)
[2020-03-04] MEDS: hydrOXYzine PAMOATE 25 MG CAPSULE (FP) PO PRN ×2 (10:07→21:58)
[2020-03-04] MEDS: MELATONIN 5 MG TABLETS PO SCH (21:58)
[2020-03-04] MEDS: THIAMINE HCL 100 MG TABLET (FP) PO SCH (21:58)
[2020-03-05] MEDS ORDERED: METHADONE HCL 10 MG TABLET ONE (03:10)
[2020-03-05] MEDS ORDERED: METHADONE HCL 40 MG DISPERSABLE TABLET ONE (03:10)
[2020-03-05] MEDS: METHADONE 40 MG, METHADONE 10 MG PO SCH (06:07)
[2020-03-05] MEDS: hydrOXYzine PAMOATE 25 MG CAPSULE (FP) PO PRN ×2 (10:12→21:16)
[2020-03-05] MEDS: PRENATAL VITAMINS W/ FOLIC ACID TABLET (FP) PO SCH (10:12)
[2020-03-05] MEDS: NICOTINE 7 MG/24 HOURS TOPICAL PATCH TD SCH (10:13)
[2020-03-05] MEDS: THIAMINE HCL 100 MG TABLET (FP) PO SCH (21:16)
[2020-03-05] MEDS: MELATONIN 5 MG TABLETS PO SCH (21:16)
[2020-03-06] MEDS ORDERED: METHADONE HCL 10 MG TABLET ONE (03:22)
[2020-03-06] MEDS ORDERED: METHADONE HCL 40 MG DISPERSABLE TABLET ONE (03:22)
[2020-03-06] MEDS: METHADONE 40 MG, METHADONE 10 MG PO SCH (06:07)
[2020-03-06] MEDS: hydrOXYzine PAMOATE 25 MG CAPSULE (FP) PO PRN ×3 (06:07→21:11)
[2020-03-06] MEDS: PRENATAL VITAMINS W/ FOLIC ACID TABLET (FP) PO SCH (09:57)
[2020-03-06] MEDS: NICOTINE 7 MG/24 HOURS TOPICAL PATCH TD SCH (09:58)
[2020-03-06] MEDS: THIAMINE HCL 100 MG TABLET (FP) PO SCH (21:11)
[2020-03-06] MEDS: MELATONIN 5 MG TABLETS PO SCH (21:11)
[2020-03-07] MEDS ORDERED: METHADONE HCL 40 MG DISPERSABLE TABLET ONE (03:25)
[2020-03-07] MEDS ORDERED: METHADONE HCL 10 MG TABLET ONE (03:25)
[2020-03-07] MEDS: METHADONE 40 MG, METHADONE 10 MG PO SCH (08:26)
[2020-03-07] MEDS: NICOTINE 7 MG/24 HOURS TOPICAL PATCH TD SCH (09:57)
[2020-03-07] MEDS: PRENATAL VITAMINS W/ FOLIC ACID TABLET (FP) PO SCH (09:57)
[2020-03-07] MEDS: hydrOXYzine PAMOATE 25 MG CAPSULE (FP) PO PRN (09:58)
[2020-03-07] MEDS: THIAMINE HCL 100 MG TABLET (FP) PO SCH (21:55)
[2020-03-07] MEDS: MELATONIN 5 MG TABLETS PO SCH (21:55)
[2020-03-08] MEDS ORDERED: METHADONE HCL 40 MG DISPERSABLE TABLET ONE (03:49)
[2020-03-08] MEDS ORDERED: METHADONE HCL 10 MG TABLET ONE (03:49)
[2020-03-08] MEDS: hydrOXYzine PAMOATE 25 MG CAPSULE (FP) PO PRN ×3 (06:09→21:34)
[2020-03-08] MEDS: METHADONE 40 MG, METHADONE 10 MG PO SCH (06:09)
[2020-03-08] MEDS: PRENATAL VITAMINS W/ FOLIC ACID TABLET (FP) PO SCH (09:51)
[2020-03-08] MEDS: NICOTINE 7 MG/24 HOURS TOPICAL PATCH TD SCH (09:51)
[2020-03-08] MEDS: MELATONIN 5 MG TABLETS PO SCH (21:34)
[2020-03-08] MEDS: THIAMINE HCL 100 MG TABLET (FP) PO SCH (21:35)
[2020-03-09] MEDS ORDERED: METHADONE HCL 40 MG DISPERSABLE TABLET ONE (06:18)
[2020-03-09] MEDS ORDERED: METHADONE HCL 10 MG TABLET ONE (06:18)
[2020-03-09] MEDS: METHADONE 40 MG, METHADONE 10 MG PO SCH (06:19)
[2020-03-09] MEDS: PRENATAL VITAMINS W/ FOLIC ACID TABLET (FP) PO SCH (09:55)
[2020-03-09] MEDS: NICOTINE 7 MG/24 HOURS TOPICAL PATCH TD SCH (09:55)
[2020-03-09] MEDS: hydrOXYzine PAMOATE 25 MG CAPSULE (FP) PO PRN (09:55)
[2020-03-09] MEDS: MELATONIN 5 MG TABLETS PO SCH (21:51)
[2020-03-09] MEDS: THIAMINE HCL 100 MG TABLET (FP) PO SCH (21:51)
[2020-03-10] MEDS ORDERED: METHADONE HCL 40 MG DISPERSABLE TABLET ONE (03:31)
[2020-03-10] MEDS ORDERED: METHADONE HCL 10 MG TABLET ONE (03:31)
[2020-03-10] MEDS: METHADONE 40 MG, METHADONE 10 MG PO SCH (06:04)
[2020-03-10] MEDS: hydrOXYzine PAMOATE 25 MG CAPSULE (FP) PO PRN (09:49)
[2020-03-10] MEDS: NICOTINE 7 MG/24 HOURS TOPICAL PATCH TD SCH (09:49)
[2020-03-10] MEDS: PRENATAL VITAMINS W/ FOLIC ACID TABLET (FP) PO SCH (09:49)
[2020-03-10] MEDS: THIAMINE HCL 100 MG TABLET (FP) PO SCH (21:44)
[2020-03-10] MEDS: MELATONIN 5 MG TABLETS PO SCH (21:44)
[2020-03-11] MEDS ORDERED: METHADONE HCL 40 MG DISPERSABLE TABLET ONE (03:30)
[2020-03-11] MEDS ORDERED: METHADONE HCL 10 MG TABLET ONE (03:30)
[2020-03-11] MEDS: METHADONE 40 MG, METHADONE 10 MG PO SCH (06:02)
[2020-03-11] MEDS ORDERED: MASKS NR ONE (09:47)
[2020-03-11] MEDS: NICOTINE 7 MG/24 HOURS TOPICAL PATCH TD SCH (10:31)
[2020-03-11] MEDS: hydrOXYzine PAMOATE 25 MG CAPSULE (FP) PO PRN (10:32)
[2020-03-11] MEDS: PRENATAL VITAMINS W/ FOLIC ACID TABLET (FP) PO SCH (10:32)
[2020-03-11] MEDS: METHYL SALICYLATE/MENTHOL OINT 30 GM TUBE TP SCH ×2 (15:33→22:49)
[2020-03-11] MEDS: THIAMINE HCL 100 MG TABLET (FP) PO SCH (22:49)
[2020-03-11] MEDS: MELATONIN 5 MG TABLETS PO SCH (22:49)
[2020-03-12] MEDS ORDERED: METHADONE HCL 10 MG TABLET ONE (03:26)
[2020-03-12] MEDS ORDERED: METHADONE HCL 40 MG DISPERSABLE TABLET ONE (03:27)
[2020-03-12] MEDS: METHADONE 40 MG, METHADONE 10 MG PO SCH (06:06)
[2020-03-12] MEDS: NICOTINE 7 MG/24 HOURS TOPICAL PATCH TD SCH (10:36)
[2020-03-12] MEDS: hydrOXYzine PAMOATE 25 MG CAPSULE (FP) PO PRN ×2 (10:36→21:40)
[2020-03-12] MEDS: PRENATAL VITAMINS W/ FOLIC ACID TABLET (FP) PO SCH (10:36)
[2020-03-12] MEDS: METHYL SALICYLATE/MENTHOL OINT 30 GM TUBE TP SCH ×2 (10:37→21:41)
[2020-03-12] MEDS: MELATONIN 5 MG TABLETS PO SCH (21:40)
[2020-03-12] MEDS: THIAMINE HCL 100 MG TABLET (FP) PO SCH (21:41)
[2020-03-13] MEDS ORDERED: METHADONE HCL 10 MG TABLET ONE (05:26)
[2020-03-13] MEDS ORDERED: METHADONE HCL 40 MG DISPERSABLE TABLET ONE (05:27)
[2020-03-13] MEDS: METHADONE 40 MG, METHADONE 10 MG PO SCH (05:52)
[2020-03-13 07:00] VITALS: BP 121/70; PULSE 60; TEMP 97.1
--- NOTE | 2020-03-13 08:50 | DS ---
[facility] Rehab Discharge Summary - [facility] Rehab Discharge Summary Admission Date: 02/27/20 Discharge Date: 03/13/20 - History Present History: Alcohol dependence, Cannabis dependence, [facility] ([facility]) Pertinent Past History: Hep C Right jaw fracture Scrotum sx(4 months ago);spleen sx Schizoaffective disorder Psych: Bipolar, Schizophrenia, Panic - Discharge Physical Exam Vital Signs: Vital Signs Temperature 97.1 F L 03/13/20 06:25 Pulse Rate 60 03/13/20 06:25 Respiratory Rate 18 03/13/20 06:25 Blood Pressure 121/70 03/13/20 06:25 O2 Sat by Pulse Oximetry (%) 96 03/13/20 06:25 Physical General Appearance: No Apparent Distress,Appropriately Dressed HEENTM: Hearing grossly Normal, Normocephalic, Normal Voice Respiratory:Lungs Clear, No Respiratory Distress Neck: Supple Cardiology: Regular Rhythm, Regular Rate Abdominal:+Bowel Sounds, Non Tender, Flat, Soft Musculoskeletal:Active FROM,all limbs, Gait Steady Extremities: no edema, Non-Tender Neurological: Alert o x 3 Integumentary: Dry, Warm Pertinent Admission Physical Exam Findings: s/p detox - Treatment Discharge Condition: Discharge condition good, Rehabilitated safely, Responded well, Outpatient referral accepted Hospital Course: Pt is a 44 y/o male admitted to rehab after detox and discharging today. Pt is on [facility] with 50 mg po daily. Pt accepted CD aftercare to [facility] program - Medication Discharge Medications: Ambulatory Orders Alprazolam 1 mg PO TID 02/22/20 Methadone [Dolophine -] 50 mg PO DAILY 02/22/20 - Medication-Assisted Treatment (MAT) Medication-Assisted Treatment (MAT): No - Discharge Instructions Diet, activity, other medical instructions: Diet:Regular Activity: oob ad kay Other medical instructions:follow up with primary care provider and CD aftercare as recommended. - Diagnosis (1) Alcohol dependence Status: Chronic Qualifiers: Substance use status: uncomplicated Qualified Code(s): F10.20 - Alcohol dependence, uncomplicated (2) Cannabis dependence Status: Chronic (3) Hepatitis C Status: Chronic Qualifiers: Viral hepatitis chronicity: unspecified (4) Methadone maintenance therapy patient Status: Chronic (5) Nicotine dependence Status: Chronic Qualifiers: Nicotine product type: cigarettes Substance use status: uncomplicated Qualified Code(s): F17.210 - Nicotine dependence, cigarettes, uncomplicated - Follow-up Referral Minutes to complete discharge: 25 - AMA Did Patient Leave Against Medical Advice: No
== END 2020-03-13 09:00 | disposition home or self-care (01) | DRG 772 ==
LOC: YASAS 14:55 → Y5N 14:57
PROVIDERS: ADMIT Allergy & Immunology; ATTEND Allergy & Immunology
PROC: HZ42ZZZ Group Counseling for Substance Abuse Treatment, Cognitive-Behavioral (ICD-10-PCS; principal; 2020-02-27)
DX: F10.20 Alcohol dependence, uncomplicated (principal); F11.20 Opioid dependence, uncomplicated; F12.20 Cannabis dependence, uncomplicated; F19.20 Other psychoactive substance dependence, uncomplicated; F17.210 Nicotine dependence, cigarettes, uncomplicated; F25.9 Schizoaffective disorder, unspecified; F19.282 Other psychoactive substance dependence with psychoactive substance-induced sleep disorder; F19.280 Other psychoactive substance dependence with psychoactive substance-induced anxiety disorder; F19.24 Other psychoactive substance dependence with psychoactive substance-induced mood disorder; F41.0 Panic disorder [episodic paroxysmal anxiety]; B18.2 Chronic viral hepatitis C; Z87.81 Personal history of (healed) traumatic fracture; Z98.890 Other specified postprocedural states

== ENCOUNTER 2022-11-24 11:33 | Inpatient (IN) | payer OTHER ==
[2022-11-24 11:48] VITALS: BMI 23.4
[2022-11-24] MEDS ORDERED: LOPERAMIDE HCL 2 MG CAPSULE PO PRN (12:17)
[2022-11-24] MEDS ORDERED: DICYCLOMINE HCL 10 MG CAPSULE PO PRN (12:17)
[2022-11-24] MEDS ORDERED: BENZOCAINE/MENTHOL (CHLORASEPTIC ) LOZENGE MM PRN (12:17)
[2022-11-24] MEDS ORDERED: P-EPHED 60MG/TRIPROLIDI 2.5MG TABLET PO PRN (12:17)
[2022-11-24] MEDS ORDERED: MAGNESIUM HYDROX 2400MG/30ML ORAL SUSPENSION 30 ML CUP PO PRN (12:17)
[2022-11-24] MEDS ORDERED: IBUPROFEN 400 MG TABLET (FP) PO PRN (12:17)
[2022-11-24] MEDS ORDERED: ACETAMINOPHEN 325 MG TABLET (FP) PO PRN (12:17)
[2022-11-24] MEDS ORDERED: MAG HYDROX/AL HYDROX/SIMETH 30 ML UNIT-DOSE CUP PO PRN (12:17)
[2022-11-24] MEDS ORDERED: NALOXONE HCL (KLOXXADO) 8 MG SPRAY NS PRN (12:17)
[2022-11-24] MEDS ORDERED: BENZONATATE 200 MG CAPSULE PO PRN (12:17)
[2022-11-24] MEDS ORDERED: NALOXONE HCL 0.4 MG/ML VIAL IM PRN (12:17)
[2022-11-24] MEDS ORDERED: NICOTINE POLACRILEX 2 MG GUM BUC PRN (12:17)
[2022-11-24] MEDS ORDERED: ONDANSETRON *ODT* 4 MG TABLET SL PRN (12:17)
[2022-11-24] MEDS ORDERED: POLYETHYLENE GLYCOL (HEALTHYLAX) 3350 17 GM PACKET PO PRN (12:17)
[2022-11-24] MEDS ORDERED: guaiFENesin 600 MG TABLET.ER (FP) PO PRN (12:17)
[2022-11-24] MEDS ORDERED: BISMUTH SUBSALICYLATE 262 MG/15 ML BTL PO PRN (12:17)
[2022-11-24] MEDS ORDERED: NICOTINE 10 MG CARTRIDGE (INHALER) IH PRN (12:17)
[2022-11-24] MEDS ORDERED: diazePAM 5 MG TABLET PO PRN (12:20)
[2022-11-24] MEDS ORDERED: LORazepam 1 MG TABLET PO PRN (17:01)
[2022-11-24] MEDS: LORazepam 2 MG TABLET PO SCH ×2 (17:39→22:24)
[2022-11-24] MEDS ORDERED: MELATONIN 5 MG TABLETS PO SCH (22:00)
[2022-11-24] MEDS: traZODone HCL 50 MG TABLET (FP) PO SCH (22:24)
[2022-11-24] MEDS: THIAMINE HCL 100 MG TABLET (FP) PO SCH (22:24)
[2022-11-25] MEDS: LORazepam 2 MG TABLET PO SCH ×4 (05:38→22:45)
[2022-11-25] MEDS: IBUPROFEN 600 MG TABLET (FP) PO PRN ×2 (05:39→22:48)
[2022-11-25] MEDS ORDERED: methaDONE HCL 40 MG DISPERSABLE TABLET PO ONE (09:00)
[2022-11-25] MEDS: PRENATAL VITAMINS W/ FOLIC ACID TABLET (FP) PO SCH (10:14)
[2022-11-25] MEDS: hydrOXYzine PAMOATE 25 MG CAPSULE (FP) PO PRN (10:15)
[2022-11-25] MEDS: METHOCARBAMOL 500 MG TABLET PO PRN (10:15)
[2022-11-25] MEDS: SERTRALINE HCL 50 MG TABLET (FP) PO SCH (10:15)
[2022-11-25 10:44] LABS: HEMATOCRIT 41.6 % (35.4-49); HEMOGLOBIN 13.8 GM/dL (11.7-16.9); MCH 29.7 pg (25.7-33.7); MCHC 33.3 g/dl (32.0-35.9); MEAN CELL VOLUME 89.3 fl (80-96); MEAN PLT VOLUME 10.3 fl (7.5-11.1); PLATELET COUNT 222 10^3/uL (134-434); RBC 4.66 M/mm3 (4.00-5.60); RDW 13.4 % (11.9-15.9); WHITE BLOOD COUNT 10.2 K/mm3 (4.0-10.0)
[2022-11-25 10:48] LABS: POTASSIUM 4.1 mmol/L (3.5-5.1)
[2022-11-25 10:52] LABS: CALCIUM 9.4 mg/dL (8.5-10.1)
[2022-11-25 10:53] LABS: ALBUMIN 3.4 g/dl (3.4-5.0); BLOOD UREA NITROGEN 7.1 mg/dL (7-18)
[2022-11-25 10:55] LABS: CREATININE 0.5 mg/dL (0.55-1.3)
[2022-11-25 10:57] LABS: BILIRUBIN,TOTAL 0.8 mg/dL (0.2-1); TOT PROT 6.6 g/dl (6.4-8.2)
[2022-11-25] MEDS: THIAMINE HCL 100 MG TABLET (FP) PO SCH (22:45)
[2022-11-25] MEDS: traZODone HCL 50 MG TABLET (FP) PO SCH (22:45)
[2022-11-26] MEDS: methaDONE HCL 40 MG DISPERSABLE TABLET PO SCH (05:35)
[2022-11-26] MEDS: LORazepam 1 MG TABLET PO SCH ×4 (05:35→22:35)
[2022-11-26] MEDS: IBUPROFEN 600 MG TABLET (FP) PO PRN (08:35)
[2022-11-26] MEDS: PRENATAL VITAMINS W/ FOLIC ACID TABLET (FP) PO SCH (10:23)
[2022-11-26] MEDS: SERTRALINE HCL 50 MG TABLET (FP) PO SCH (10:23)
[2022-11-26] MEDS: METHOCARBAMOL 500 MG TABLET PO PRN (10:23)
[2022-11-26] MEDS: hydrOXYzine PAMOATE 25 MG CAPSULE (FP) PO PRN (10:28)
[2022-11-26] MEDS: THIAMINE HCL 100 MG TABLET (FP) PO SCH (22:35)
[2022-11-26] MEDS: traZODone HCL 50 MG TABLET (FP) PO SCH (22:35)
[2022-11-27] MEDS ORDERED: LORazepam 0.5 MG TABLET PO PRN
[2022-11-27] MEDS: LORazepam 0.5 MG TABLET PO SCH ×4 (05:50→23:04)
[2022-11-27] MEDS: methaDONE HCL 40 MG DISPERSABLE TABLET PO SCH (05:50)
[2022-11-27] MEDS: IBUPROFEN 600 MG TABLET (FP) PO PRN (05:56)
[2022-11-27] MEDS: PRENATAL VITAMINS W/ FOLIC ACID TABLET (FP) PO SCH (10:10)
[2022-11-27] MEDS: SERTRALINE HCL 50 MG TABLET (FP) PO SCH (10:11)
[2022-11-27] MEDS: METHOCARBAMOL 500 MG TABLET PO PRN (16:44)
[2022-11-27] MEDS: traZODone HCL 50 MG TABLET (FP) PO SCH (22:40)
[2022-11-27] MEDS: THIAMINE HCL 100 MG TABLET (FP) PO SCH (22:52)
[2022-11-28] MEDS ORDERED: LORazepam 0.5 MG TABLET PO ONE (05:00)
[2022-11-28] MEDS: methaDONE HCL 40 MG DISPERSABLE TABLET PO SCH (05:36)
[2022-11-28 09:15] VITALS: TEMP 96.9
[2022-11-28] MEDS: SERTRALINE HCL 50 MG TABLET (FP) PO SCH (11:00)
[2022-11-28] MEDS: PRENATAL VITAMINS W/ FOLIC ACID TABLET (FP) PO SCH (11:00)
[2022-11-28] MEDS: METHOCARBAMOL 500 MG TABLET PO PRN (11:00)
[2022-11-28] MEDS: IBUPROFEN 600 MG TABLET (FP) PO PRN (11:02)
[2022-11-28 13:15] VITALS: RESP 17
[2022-11-28 18:28] VITALS: BP 118/73; PULSE 57
== END 2022-11-28 17:22 | disposition other institution (70) | DRG 773 ==
LOC: YASAS 11:33 → Y6N 12:35
PROVIDERS: ADMIT Allergy & Immunology; ATTEND Surgery
PROC: HZ2ZZZZ Detoxification Services for Substance Abuse Treatment (ICD-10-PCS; principal; 2022-11-24)
DX: F10.230 Alcohol dependence with withdrawal, uncomplicated (principal); F11.20 Opioid dependence, uncomplicated; F13.20 Sedative, hypnotic or anxiolytic dependence, uncomplicated; F12.20 Cannabis dependence, uncomplicated; F17.210 Nicotine dependence, cigarettes, uncomplicated; F19.282 Other psychoactive substance dependence with psychoactive substance-induced sleep disorder; F19.24 Other psychoactive substance dependence with psychoactive substance-induced mood disorder; R26.89 Other abnormalities of gait and mobility; Z99.89 Dependence on other enabling machines and devices
CPT/HCPCS: 36415; 80053; 85027; 86780; 87635; 87811; G0480

== ENCOUNTER 2022-11-28 17:31 | Inpatient (IN) | payer OTHER ==
[2022-11-28] MEDS ORDERED: LOPERAMIDE HCL 2 MG CAPSULE PO PRN (18:12)
[2022-11-28] MEDS ORDERED: MAGNESIUM HYDROX 2400MG/30ML ORAL SUSPENSION 30 ML CUP PO PRN (18:12)
[2022-11-28] MEDS ORDERED: NALOXONE HCL (KLOXXADO) 8 MG SPRAY NS PRN (18:12)
[2022-11-28] MEDS ORDERED: MAG HYDROX/AL HYDROX/SIMETH 30 ML UNIT-DOSE CUP PO PRN (18:12)
[2022-11-28] MEDS ORDERED: hydrOXYzine PAMOATE 25 MG CAPSULE (FP) PO PRN (18:12)
[2022-11-28] MEDS ORDERED: BENZONATATE 200 MG CAPSULE PO PRN (18:12)
[2022-11-28] MEDS ORDERED: NALOXONE HCL 0.4 MG/ML VIAL IVPUSH PRN (18:12)
[2022-11-28] MEDS ORDERED: AMMONIUM LACTATE 12% LOTION 225 GM BOTTLE TP PRN (18:12)
[2022-11-28] MEDS ORDERED: COLLOIDAL OATMEAL 1 BAR EACH TP PRN (18:12)
[2022-11-28] MEDS ORDERED: ACETAMINOPHEN 325 MG TABLET (FP) PO PRN (18:12)
[2022-11-28] MEDS ORDERED: guaiFENesin 600 MG TABLET.ER (FP) PO PRN (18:12)
[2022-11-28] MEDS ORDERED: POLYETHYLENE GLYCOL (HEALTHYLAX) 3350 17 GM PACKET PO PRN (18:12)
[2022-11-28] MEDS ORDERED: BENZOCAINE/MENTHOL (CHLORASEPTIC ) LOZENGE MM PRN (18:12)
[2022-11-28] MEDS: IBUPROFEN 600 MG TABLET (FP) PO PRN (18:54)
[2022-11-28] MEDS: MELATONIN 5 MG TABLETS PO SCH (20:59)
[2022-11-28] MEDS: THIAMINE HCL 100 MG TABLET (FP) PO SCH (21:00)
[2022-11-28] MEDS ORDERED: traZODone HCL 50 MG TABLET (FP) PO SCH (22:00)
[2022-11-29] MEDS: METHOCARBAMOL 500 MG TABLET PO PRN ×2 (06:12→11:17)
[2022-11-29] MEDS: methaDONE HCL 40 MG DISPERSABLE TABLET PO SCH (07:11)
[2022-11-29] MEDS: PRENATAL VITAMINS W/ FOLIC ACID TABLET (FP) PO SCH (09:22)
[2022-11-29] MEDS ORDERED: SERTRALINE HCL 50 MG TABLET (FP) PO SCH (10:00)
[2022-11-29] MEDS: clonazePAM 0.5 MG ODT TABLETS SL SCH ×2 (11:17→21:01)
[2022-11-29] MEDS: traZODone HCL 50 MG TABLET (FP) PO SCH (21:01)
[2022-11-29] MEDS: THIAMINE HCL 100 MG TABLET (FP) PO SCH (21:02)
[2022-11-29] MEDS: MELATONIN 5 MG TABLETS PO SCH (21:02)
[2022-11-29] MEDS: IBUPROFEN 400 MG TABLET (FP) PO PRN (21:03)
[2022-11-30] MEDS: methaDONE HCL 40 MG DISPERSABLE TABLET PO SCH (06:44)
[2022-11-30] MEDS: clonazePAM 0.5 MG ODT TABLETS SL SCH ×2 (10:16→21:00)
[2022-11-30] MEDS: SERTRALINE HCL 50 MG TABLET (FP) PO SCH (10:16)
[2022-11-30] MEDS: PRENATAL VITAMINS W/ FOLIC ACID TABLET (FP) PO SCH (10:16)
[2022-11-30] MEDS: IBUPROFEN 600 MG TABLET (FP) PO PRN (10:18)
[2022-11-30] MEDS: traZODone HCL 50 MG TABLET (FP) PO SCH (21:00)
[2022-11-30] MEDS: THIAMINE HCL 100 MG TABLET (FP) PO SCH (21:01)
[2022-11-30] MEDS: MELATONIN 5 MG TABLETS PO SCH (21:01)
[2022-12-01] MEDS: methaDONE HCL 40 MG DISPERSABLE TABLET PO SCH (07:08)
[2022-12-01] MEDS: IBUPROFEN 600 MG TABLET (FP) PO PRN (07:12)
[2022-12-01] MEDS: PRENATAL VITAMINS W/ FOLIC ACID TABLET (FP) PO SCH (10:48)
[2022-12-01] MEDS: SERTRALINE HCL 50 MG TABLET (FP) PO SCH (10:49)
[2022-12-01] MEDS: clonazePAM 0.5 MG ODT TABLETS SL SCH ×2 (10:49→21:15)
[2022-12-01] MEDS: LIDOCAINE 5% TOPICAL PATCH TP SCH (10:50)
[2022-12-01] MEDS: CARBAMIDE PEROXIDE 6.5% OTIC 15 ML BOTTLE AU SCH ×2 (15:21→21:53)
[2022-12-01] MEDS: MELATONIN 5 MG TABLETS PO SCH (21:13)
[2022-12-01] MEDS: THIAMINE HCL 100 MG TABLET (FP) PO SCH (21:13)
[2022-12-01] MEDS: traZODone HCL 50 MG TABLET (FP) PO SCH (21:14)
[2022-12-01] MEDS: LIDOCAINE PATCH REMOVAL MC SCH (21:17)
[2022-12-02] MEDS: methaDONE HCL 40 MG DISPERSABLE TABLET PO SCH (06:32)
[2022-12-02] MEDS: IBUPROFEN 600 MG TABLET (FP) PO PRN (06:33)
[2022-12-02] MEDS: LIDOCAINE 5% TOPICAL PATCH TP SCH (10:21)
[2022-12-02] MEDS: clonazePAM 0.5 MG ODT TABLETS SL SCH ×2 (10:21→21:09)
[2022-12-02] MEDS: SERTRALINE HCL 50 MG TABLET (FP) PO SCH (10:22)
[2022-12-02] MEDS: PRENATAL VITAMINS W/ FOLIC ACID TABLET (FP) PO SCH (10:22)
[2022-12-02] MEDS: CARBAMIDE PEROXIDE 6.5% OTIC 15 ML BOTTLE AU SCH ×2 (10:23→21:09)
[2022-12-02] MEDS: THIAMINE HCL 100 MG TABLET (FP) PO SCH (21:08)
[2022-12-02] MEDS: traZODone HCL 50 MG TABLET (FP) PO SCH (21:09)
[2022-12-02] MEDS: MELATONIN 5 MG TABLETS PO SCH (21:09)
[2022-12-02] MEDS: LIDOCAINE PATCH REMOVAL MC SCH (21:10)
[2022-12-03] MEDS: methaDONE HCL 40 MG DISPERSABLE TABLET PO SCH (06:35)
[2022-12-03] MEDS: IBUPROFEN 600 MG TABLET (FP) PO PRN ×2 (06:38→21:22)
[2022-12-03] MEDS: SERTRALINE HCL 50 MG TABLET (FP) PO SCH (10:10)
[2022-12-03] MEDS: clonazePAM 0.5 MG ODT TABLETS SL SCH ×2 (10:10→21:22)
[2022-12-03] MEDS: LIDOCAINE 5% TOPICAL PATCH TP SCH (10:11)
[2022-12-03] MEDS: CARBAMIDE PEROXIDE 6.5% OTIC 15 ML BOTTLE AU SCH ×2 (10:11→21:23)
[2022-12-03] MEDS: PRENATAL VITAMINS W/ FOLIC ACID TABLET (FP) PO SCH (10:11)
[2022-12-03] MEDS: traZODone HCL 50 MG TABLET (FP) PO SCH (21:21)
[2022-12-03] MEDS: THIAMINE HCL 100 MG TABLET (FP) PO SCH (21:23)
[2022-12-03] MEDS: LIDOCAINE PATCH REMOVAL MC SCH (21:23)
[2022-12-03] MEDS: MELATONIN 5 MG TABLETS PO SCH (21:23)
[2022-12-04] MEDS: methaDONE HCL 40 MG DISPERSABLE TABLET PO SCH (06:09)
[2022-12-04] MEDS: clonazePAM 0.5 MG ODT TABLETS SL SCH ×2 (09:43→21:12)
[2022-12-04] MEDS: CARBAMIDE PEROXIDE 6.5% OTIC 15 ML BOTTLE AU SCH (09:44)
[2022-12-04] MEDS: PRENATAL VITAMINS W/ FOLIC ACID TABLET (FP) PO SCH (09:44)
[2022-12-04] MEDS: SERTRALINE HCL 50 MG TABLET (FP) PO SCH (09:44)
[2022-12-04] MEDS: LIDOCAINE 5% TOPICAL PATCH TP SCH (09:44)
[2022-12-04] MEDS: traZODone HCL 50 MG TABLET (FP) PO SCH (21:13)
[2022-12-04] MEDS: MELATONIN 5 MG TABLETS PO SCH (21:13)
[2022-12-04] MEDS: THIAMINE HCL 100 MG TABLET (FP) PO SCH (21:13)
[2022-12-04] MEDS: IBUPROFEN 600 MG TABLET (FP) PO PRN (21:13)
[2022-12-04] MEDS: LIDOCAINE PATCH REMOVAL MC SCH (21:13)
[2022-12-05] MEDS: methaDONE HCL 40 MG DISPERSABLE TABLET PO SCH (06:49)
[2022-12-05] MEDS: IBUPROFEN 600 MG TABLET (FP) PO PRN ×2 (06:52→21:25)
[2022-12-05] MEDS: LIDOCAINE 5% TOPICAL PATCH TP SCH (10:11)
[2022-12-05] MEDS: PRENATAL VITAMINS W/ FOLIC ACID TABLET (FP) PO SCH (10:11)
[2022-12-05] MEDS: SERTRALINE HCL 50 MG TABLET (FP) PO SCH (10:12)
[2022-12-05] MEDS: clonazePAM 0.5 MG ODT TABLETS SL SCH ×3 (10:12→22:20)
[2022-12-05] MEDS: traZODone HCL 50 MG TABLET (FP) PO SCH (21:24)
[2022-12-05] MEDS: MELATONIN 5 MG TABLETS PO SCH (21:25)
[2022-12-05] MEDS: THIAMINE HCL 100 MG TABLET (FP) PO SCH (21:25)
[2022-12-05] MEDS: LIDOCAINE PATCH REMOVAL MC SCH (21:27)
[2022-12-06] MEDS: methaDONE HCL 40 MG DISPERSABLE TABLET PO SCH (06:32)
[2022-12-06] MEDS: clonazePAM 0.5 MG ODT TABLETS SL SCH ×4 (10:09→22:04)
[2022-12-06] MEDS: PRENATAL VITAMINS W/ FOLIC ACID TABLET (FP) PO SCH (10:10)
[2022-12-06] MEDS: SERTRALINE HCL 50 MG TABLET (FP) PO SCH (10:10)
[2022-12-06] MEDS: LIDOCAINE 5% TOPICAL PATCH TP SCH (10:11)
[2022-12-06] MEDS: traZODone HCL 50 MG TABLET (FP) PO SCH (21:06)
[2022-12-06] MEDS: THIAMINE HCL 100 MG TABLET (FP) PO SCH (21:07)
[2022-12-06] MEDS: MELATONIN 5 MG TABLETS PO SCH (21:07)
[2022-12-06] MEDS: LIDOCAINE PATCH REMOVAL MC SCH (21:08)
[2022-12-07] MEDS: IBUPROFEN 600 MG TABLET (FP) PO PRN (06:09)
[2022-12-07] MEDS: methaDONE HCL 10 MG TABLET PO SCH (09:00)
[2022-12-07] MEDS: SERTRALINE HCL 50 MG TABLET (FP) PO SCH (09:03)
[2022-12-07] MEDS: LIDOCAINE 5% TOPICAL PATCH TP SCH (09:03)
[2022-12-07] MEDS: PRENATAL VITAMINS W/ FOLIC ACID TABLET (FP) PO SCH (09:03)
[2022-12-07] MEDS: clonazePAM 0.5 MG ODT TABLETS SL SCH ×2 (09:03→21:31)
[2022-12-07] MEDS: traZODone HCL 50 MG TABLET (FP) PO SCH (21:29)
[2022-12-07] MEDS: LIDOCAINE PATCH REMOVAL MC SCH (21:30)
[2022-12-07] MEDS: THIAMINE HCL 100 MG TABLET (FP) PO SCH (21:31)
[2022-12-07] MEDS: MELATONIN 5 MG TABLETS PO SCH (21:32)
[2022-12-08] MEDS: methaDONE HCL 10 MG TABLET PO SCH (06:23)
[2022-12-08] MEDS: IBUPROFEN 600 MG TABLET (FP) PO PRN (06:23)
[2022-12-08] MEDS: SERTRALINE HCL 50 MG TABLET (FP) PO SCH (10:22)
[2022-12-08] MEDS: PRENATAL VITAMINS W/ FOLIC ACID TABLET (FP) PO SCH (10:22)
[2022-12-08] MEDS: clonazePAM 0.5 MG ODT TABLETS SL SCH ×2 (10:22→21:16)
[2022-12-08] MEDS: LIDOCAINE 5% TOPICAL PATCH TP SCH (10:22)
[2022-12-08] MEDS: traZODone HCL 50 MG TABLET (FP) PO SCH (21:15)
[2022-12-08] MEDS: LIDOCAINE PATCH REMOVAL MC SCH (21:17)
[2022-12-08] MEDS: MELATONIN 5 MG TABLETS PO SCH (21:17)
[2022-12-08] MEDS: THIAMINE HCL 100 MG TABLET (FP) PO SCH (21:17)
[2022-12-09] MEDS: IBUPROFEN 600 MG TABLET (FP) PO PRN (06:17)
[2022-12-09] MEDS: methaDONE HCL 10 MG TABLET PO SCH (06:17)
[2022-12-09] MEDS: LIDOCAINE 5% TOPICAL PATCH TP SCH (10:00)
[2022-12-09] MEDS: PRENATAL VITAMINS W/ FOLIC ACID TABLET (FP) PO SCH (10:00)
[2022-12-09] MEDS: clonazePAM 0.5 MG ODT TABLETS SL SCH ×2 (10:00→21:04)
[2022-12-09] MEDS: SERTRALINE HCL 50 MG TABLET (FP) PO SCH (10:00)
[2022-12-09] MEDS: LIDOCAINE PATCH REMOVAL MC SCH (21:03)
[2022-12-09] MEDS: traZODone HCL 50 MG TABLET (FP) PO SCH (21:03)
[2022-12-09] MEDS: MELATONIN 5 MG TABLETS PO SCH (21:04)
[2022-12-09] MEDS: THIAMINE HCL 100 MG TABLET (FP) PO SCH (21:04)
[2022-12-09] MEDS: IBUPROFEN 400 MG TABLET (FP) PO PRN (21:04)
[2022-12-10] MEDS: IBUPROFEN 600 MG TABLET (FP) PO PRN (06:23)
[2022-12-10] MEDS: methaDONE HCL 10 MG TABLET PO SCH (06:24)
[2022-12-10] MEDS: LIDOCAINE 5% TOPICAL PATCH TP SCH (09:03)
[2022-12-10] MEDS: clonazePAM 0.5 MG ODT TABLETS SL SCH ×2 (09:03→21:13)
[2022-12-10] MEDS: PRENATAL VITAMINS W/ FOLIC ACID TABLET (FP) PO SCH (09:03)
[2022-12-10] MEDS: SERTRALINE HCL 50 MG TABLET (FP) PO SCH (09:03)
[2022-12-10] MEDS: traZODone HCL 50 MG TABLET (FP) PO SCH (21:13)
[2022-12-10] MEDS: MELATONIN 5 MG TABLETS PO SCH (21:14)
[2022-12-10] MEDS: LIDOCAINE PATCH REMOVAL MC SCH (21:14)
[2022-12-10] MEDS: THIAMINE HCL 100 MG TABLET (FP) PO SCH (21:14)
[2022-12-10] MEDS: IBUPROFEN 400 MG TABLET (FP) PO PRN (21:25)
[2022-12-11] MEDS ORDERED: methaDONE HCL 40 MG DISPERSABLE TABLET PO SCH ×2 (06:09→06:45)
[2022-12-11] MEDS ORDERED: clonazePAM 0.5 MG ODT TABLETS SL SCH (06:45)
[2022-12-11] MEDS ORDERED: SERTRALINE HCL 50 MG TABLET (FP) PO SCH (07:15)
[2022-12-11] MEDS: methaDONE HCL 10 MG TABLET PO SCH (07:20)
[2022-12-11 07:56] VITALS: BP 132/84; PULSE 102; RESP 17; TEMP 98
== END 2022-12-11 07:57 | disposition home or self-care (01) | DRG 772 ==
LOC: YASAS 17:31 → Y3W 17:32
PROVIDERS: ADMIT Allergy & Immunology; ATTEND Psychiatry & Neurology Pain Medicine
PROC: HZ42ZZZ Group Counseling for Substance Abuse Treatment, Cognitive-Behavioral (ICD-10-PCS; principal; 2022-11-28)
DX: F10.20 Alcohol dependence, uncomplicated (principal); F11.20 Opioid dependence, uncomplicated; F12.20 Cannabis dependence, uncomplicated; F17.210 Nicotine dependence, cigarettes, uncomplicated; F19.280 Other psychoactive substance dependence with psychoactive substance-induced anxiety disorder; F19.282 Other psychoactive substance dependence with psychoactive substance-induced sleep disorder; F31.9 Bipolar disorder, unspecified; F41.9 Anxiety disorder, unspecified; F25.9 Schizoaffective disorder, unspecified; H61.23 Impacted cerumen, bilateral; M25.572 Pain in left ankle and joints of left foot; G89.29 Other chronic pain; Z87.81 Personal history of (healed) traumatic fracture; R26.89 Other abnormalities of gait and mobility; Z99.89 Dependence on other enabling machines and devices
CPT/HCPCS: 36415; 86803; 87522